=== PATIENT | female | born 1950 | race African-American/Black ===

== ENCOUNTER 2020-09-23 16:08 | Outpatient (CLI) | payer BC, SELFPAY ==
--- NOTE | ~2020-09-23 | MM_ITS ---
EXAMINATION: MM screening eladia BI w jaydon HISTORY: Screening TECHNIQUE: Craniocaudal and mediolateral oblique 3-D tomosynthesis images were obtained and synthetic 2-D images were generated. CAD analysis was submitted and interpreted. COMPARISON: Comparison to multiple prior studies sequentially, with oldest reviewed study dated 03/02. BREAST PARENCHYMAL COMPOSITION: There are scattered areas of fibroglandular density. FINDINGS: Stable architectural distortion and calcifications in the right breast. There is no evidenc e of suspicious mass, calcification, or architectural distortion to suggest malignancy in either telma st. There has been no suspicious interval change. IMPRESSION: 1. No mammographic evidence of malignancy. 2. Recommend routine screening mammography in one year. BI-RADS Category 2: Benign finding(s). Reviewed, dictated and finalized at location A. BER TENDER
== END 2020-09-23 16:09 | disposition home or self-care (01) ==
PROVIDERS: PCP Family Medicine; Visit Provider Obstetrics & Gynecology
DX: Z12.31 Encounter for screening mammogram for malignant neoplasm of breast (principal)
CPT/HCPCS: 77063; 77067

== ENCOUNTER 2021-12-01 14:47 | Outpatient (CLI) | payer MEDICARE, SELFPAY ==
--- NOTE | ~2021-12-01 | MM_ITS ---
EXAMINATION: MM screening eladia BI w jaydon HISTORY: Screening TECHNIQUE: Craniocaudal and mediolateral oblique 3-D tomosynthesis images were obtained and synthetic 2-D images were generated. CAD analysis was submitted and interpreted. COMPARISON: Comparison to multiple prior studies sequentially, with oldest reviewed study dated 03/02. BREAST PARENCHYMAL COMPOSITION: Breast composed of scattered areas of fibroglandular density. FINDINGS: There is stable architectural distortion in the subareolar location of the right breast. Th ere are developing asymmetries in the upper inner quadrant of the right breast posteriorly. The left breast is stable without evidence for malignancy. IMPRESSION: 1. Developing right breast asymmetries. 2. Additional mammographic views and possible breast ultrasound are recommended. BI-RADS Category 0: Incomplete: Needs additional imaging evaluation. Reviewed, dictated and finalized at location A. E FERRY OPERATOR IMPRESSION: 1. Developing right breast asymmetries. 2. Additional mammographic views and possible breast ultrasound are recommended . BI-RADS Category 0: Incomplete: Needs additional imaging evaluation.
== END 2021-12-01 14:48 | disposition home or self-care (01) ==
LOC: ANHIMG 14:50
PROVIDERS: PCP Family Medicine; Visit Provider Obstetrics & Gynecology
DX: Z12.31 Encounter for screening mammogram for malignant neoplasm of breast (principal); R92.8 Other abnormal and inconclusive findings on diagnostic imaging of breast
CPT/HCPCS: 77063; 77067

== ENCOUNTER 2021-12-18 14:01 | Outpatient (CLI) | payer MEDICARE, SELFPAY ==
--- NOTE | ~2021-12-18 | MMUS_ITS ---
EXAMINATION: MM diagnostic eladia RT w jaydon, US breast RT limited HISTORY: Possible right breast masses on screening mammogram TECHNIQUE: Additional 3-D tomosynthesis images of the right breast were performed and synthetic 2-D i mages were generated. CAD analysis was submitted and interpreted. High resolution limited right breas t ultrasound was performed. COMPARISON: 12/01/2021, 09/23/2020, 07/31/2019, 05/20/2017 FINDINGS: MAMMOGRAPHIC FINDINGS: The 6 mm oval, equal density, circumscribed mass in the posterior third of inner breast at the 3:00 l ocation 9 cm from the nipple. 6 mm oval, circumscribed, equal density mass is seen slightly more medi al/central breast at the 3:00 location 8 cm from the nipple. These appear to be stable to slightly in creased in size when compared to prior mammograms. ULTRASOUND: No definite sonographic correlate is identified for the mammographically detected masses. IMPRESSION: 1. Probably benign right breast masses. 2. Recommend 6 month follow-up right diagnostic mammogram and possible ultrasound. BI-RADS category 3, probably benign findings. Reviewed, dictated and finalized at location A. TENANCE FITTER IMPRESSION: 1. Probably benign right breast masses. 2. Recommend 6 month follow-up right diagnostic mammogram and possible ultrasou nd. BI-RADS category 3, probably benign findings.
== END 2021-12-18 14:02 | disposition home or self-care (01) ==
LOC: ANHIMG 14:01
PROVIDERS: PCP Family Medicine; Visit Provider Obstetrics & Gynecology
DX: R92.8 Other abnormal and inconclusive findings on diagnostic imaging of breast (principal)
CPT/HCPCS: 76642; 77061; 77065; G0279

== ENCOUNTER 2022-05-12 11:30 | Outpatient (CLI) | payer MEDICARE, SELFPAY ==
--- NOTE | ~2022-05-12 | MM_ITS ---
EXAMINATION: MM diagnostic eladia RT w jaydon HISTORY: Probable benign right mammogram findings on 12/18/2021 diagnostic right mammogram TECHNIQUE: ML, MLO and CC 3-D tomosynthesis images of the right breast were performed and synthetic 2 -D images were generated. CAD analysis was submitted and interpreted. COMPARISON: 12/10/2021 diagnostic right mammogram and limited right breast ultrasound 12/01/2021, 10/10/2020, 07/31/2019 bilateral screening mammogram examinations BREAST PARENCHYMAL COMPOSITION: There are scattered areas of fibroglandular density. FINDINGS: There is stable focal asymmetric density/architectural distortion in the upper mid right br east since 07/31/2019. No interval suspicious mass or new architectural distortion or any malignant calcification or new ski n thickening or retraction is noted. There are occasional 5 mm or smaller low-density circumscribed b enign-appearing mammographic opacities IMPRESSION: 1. Stable asymmetry/architectural distortion in the upper mid right breast, likely related to history of previous right breast biopsy, unchanged since 07/31/2019 2. Routine annual mammographic screening is recommended BI-RADS Category 2: Benign finding(s). Reviewed, dictated and finalized at location A. IMPRESSION: 1. Stable asymmetry/architectural distortion in the upper mid right breast, lik elena related to history of previous right breast biopsy, unchanged since 07/31/20 19 2. Routine annual mammographic screening is recommended BI-RADS Category 2: Benign finding(s).
== END 2022-05-12 11:31 | disposition home or self-care (01) ==
PROVIDERS: PCP Family Medicine; Visit Provider Obstetrics & Gynecology
DX: R92.8 Other abnormal and inconclusive findings on diagnostic imaging of breast (principal)
CPT/HCPCS: 77061; 77065; G0279

== ENCOUNTER 2022-06-25 13:08 | Outpatient (CLI) | payer MEDICARE, SELFPAY ==
--- NOTE | ~2022-06-25 | DEXA_ITS ---
Bone Density Report Name: WILLIAM SPRINGER Age: 71 Sex: Female Ethnicity: White Date of : 1950 Indication: postmenopausal; screening for osteoporosis; hysterectomy; Referring Provider: SANA GUPTA Study: Bone densitometry was performed. Exam Date: June 25, 2022 Accession number: [id number] Bone Density: Region BMD T-score Z-score Classification AP Spine(L1-L4) 1.201 1.4 3.7 Normal Femoral Neck (Left) 0.870 0.2 2.2 Normal Total Hip (Left) 1.077 1.1 2.8 Normal Femoral Neck (Right) 0.891 0.4 2.4 Normal Total Hip (Right) 1.069 1.0 2.7 Normal Total Hip Mean 1.073 1.1 2.8 Normal World Health Organization criteria for BMD impression classify patients as: Normal (T-score at or above -1.0), Osteopenia (T-score between -1.0 and -2.5), or Osteoporosis (T-score at or below -2.5). 10-year Fracture Risk: FRAX not reported because: All T-scores for Spine Total, Hip Total, Femoral Neck at or above -1.0 Clinical Information Provided by Patient: Has the following medical conditions: Hysterectomy Patient maximum height was 67 Menopause Age: 48 No regular weight bearing exercise Drinks caffeinated beverages Onset of menses at age 12 Number of children 2 Impression: The patient has normal bone mass. Discussion: LOW RISK OF FRACTURE; BONE DENSITY IS WELL ABOVE THE MINIMUM DESIRABLE LEVEL AND ABOVE AVERAGE FOR AGE AND SEX AT ALL SKELETAL SITES TESTED. This person's bone density is above expected limits for age and sex. This is rarely clinically significant, but should be pursued if there are significant musculoskeletal complaints. The patient should follow a healthful lifestyle (good nutrition with adequate calcium and vitamin D, and appropriate weight-bearing exercise). Follow-Up: Consider repeating this study in 5 years or sooner if there is some new clinical indication. Reported by: NOY on 06/25/2022 1:27:00 PM. Reviewed, dictated and finalized at location AMax [email or web address]
--- NOTE | ~2022-06-25 | US_ITS ---
EXAMINATION: US thyroid DATE: 06/25/2022 14:13 INDICATION: Nontoxic goiter, unspecified. TECHNIQUE: Multiple ultrasound images of the thyroid were obtained. COMPARISON: None. FINDINGS: The right thyroid lobe measures 5.4 x 1.2 x 1.6 cm. The left thyroid lobe measures 5.3 x 2.0 x 2.1 c m. In the left thyroid lobe, there is a 2.8 cm solid, hypoechoic, wider than tall nodule with smooth margin without echogenic foci (TI-RADS TR4). IMPRESSION: 1. Left thyroid nodule. Ultrasound-guided fine-needle aspiration is recommended. Reviewed, dictated and finalized at location A. IMPRESSION: 1. Left thyroid nodule. Ultrasound-guided fine-needle aspiration is recommended .
== END 2022-06-25 13:09 | disposition home or self-care (01) ==
PROVIDERS: PCP Family Medicine; Visit Provider Obstetrics & Gynecology
DX: Z78.0 Asymptomatic menopausal state (principal); E04.1 Nontoxic single thyroid nodule
CPT/HCPCS: 76536; 77080

== ENCOUNTER 2023-11-18 15:14 | Outpatient (CLI) | payer MEDICARE, SELFPAY ==
--- NOTE | ~2023-11-18 | MM_ITS ---
EXAMINATION: MM screening eladia BI w jaydon HISTORY: Screening mammogram TECHNIQUE: Craniocaudal and mediolateral oblique 3-D tomosynthesis images were obtained and synthetic 2-D images were generated. CAD analysis was submitted and interpreted. COMPARISON: 05/12/2022 diagnostic right mammogram 12/18/2021 diagnostic right mammogram and limited right breast ultrasound examination 12/01/2021, 09/23/2020, 05/20/2017 bilateral screening mammogram examinations BREAST PARENCHYMAL COMPOSITION: There are scattered areas of fibroglandular density. FINDINGS: History of benign right breast biopsy. Chronic focal asymmetric increased density in the an terior mid right breast. There is no evidence of suspicious mass, calcification, or architectural dis tortion to suggest malignancy in either breast. There has been no suspicious interval change. IMPRESSION: 1. No mammographic evidence of malignancy. 2. Recommend routine screening mammography in one year. BI-RADS Category 2: Benign finding(s). Reviewed, dictated and finalized at location A. ITUAL ADVISOR
== END 2023-11-18 15:15 | disposition home or self-care (01) ==
PROVIDERS: PCP Family Medicine; Visit Provider Obstetrics & Gynecology
DX: Z12.31 Encounter for screening mammogram for malignant neoplasm of breast (principal)
CPT/HCPCS: 77063; 77067

== ENCOUNTER 2025-02-07 15:18 | Outpatient (CLI) | payer MEDICARE, SELFPAY ==
--- NOTE | ~2025-02-07 | MM_ITS ---
EXAMINATION: MM screening eladia BI w jaydon HISTORY: Screening TECHNIQUE: Craniocaudal and mediolateral oblique 3-D tomosynthesis images were obtained and synthetic 2-D images were generated. CAD analysis was submitted and interpreted. COMPARISON: Comparison to multiple prior studies sequentially, with oldest reviewed study dated 07/31. BREAST PARENCHYMAL COMPOSITION: Not dense: There are scattered areas of fibroglandular density. FINDINGS: There is stable distortion in the subareolar location of the right breast, likely due to pr ior benign biopsy. There is no evidence of suspicious mass, calcification, or architectural distortio n to suggest malignancy in either breast. There has been no suspicious interval change. IMPRESSION: 1. No mammographic evidence of malignancy. 2. Recommend routine screening mammography in one year. BI-RADS Category 1: Negative Reviewed, dictated and finalized at location B.
--- OUTSIDE RECORDS SUMMARY | 2025-02-07 15:38 | XMS_ITS | Encounter Summary ---
Author Organization [facility] Care Team Providers Care Reading Instructor Name Role Phone Danny Silverman MD Primary Care Provider [phone] Encounter Details Date Type Department Care Team (Latest Contact Info) Description 10/07/2018 Orders Only [facility]IN[facility] ProviderLizett MD [address] [place] [id number] Social History Tobacco Use Types Packs/Day Years Used Date Smoking Tobacco: Never Assessed Comments Unknown Sex and Gender Information Value Date Recorded Sex Assigned at Not on file Legal Sex Female 8:24 AM CDT Gender Identity Not on file Sexual Orientation Not on file documented as of this encounter Plan of Treatment Not on file documented as of this encounter Procedures Procedure Name Priority Date/Time Associated Diagnosis Comments CARDIOLOGY REPORT 10/18/2018 12: 00 AM DOOR TO DOOR SELLING AGENT documented in this encounter Results * CARDIOLOGY REPORT (10/18/2018 12:00 AM DOOR TO DOOR SELLING AGENT) Anatomical Region Laterality Modality Other Narrative 10/18/2018 12:00 AM DOOR TO DOOR SELLING AGENT Ordered by an unspecified provider. us Historical Provider [facility] BRADLEY JASON Final Result documented in this encounter Visit Diagnoses Not on filedocumented in this encounter Care Teams Reading Instructor Relationship Specialty Start Date End Date Danny Silverman MD PCP - General Family Medicine 04/20/19 documented as of this encounter
--- OUTSIDE RECORDS SUMMARY | 2025-02-07 15:38 | XMS_ITS | Encounter Summary ---
Author Organization [facility] Address [address] [place] [id number] Care Team Providers Care Food Tray Assembler Name Role Phone Danny Silverman MD Primary Care Provider [phone] Encounter Details Date Type Department Care Team (Late Contact Info) Description 11/01/2023 Leaky Message Enc [facility], [place] [address] [place], [place] [phone] [facility], 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 [address] [place], [place] [phone] documented as of this encounter Visit Diagnoses Not on filedocumented in this encounter Additional Health Concerns Infection Onset Date Last Indicated Resolved Time COVID-19 Rule Out 07/25/2024 07/25/2024 07/25/2024 2:55 PM CDT COVID-19 Confirmed 07/25/2024 07/25/2024 12:32 AM CDT documented as of this encounter Care Teams Food Tray Assembler Relationship Specialty Start Date End Date Danny Silverman MD [address] [address] PCP - General FAMILY PRACTICE 11/21/21 documented as of this encounter
--- OUTSIDE RECORDS SUMMARY | 2025-02-07 15:38 | XMS_ITS | Encounter Summary ---
Author Organization [facility] Address [address] [place] [address] Care Team Providers Care Central Office Equipment Installer Name Role Phone Danny Silverman MD Primary Care Provider [phone] Encounter Details Date Type Department Care Team (Late st Contact Info) Description 01/21/2025 Results Follow-Up [facility] Orthopedics and Sports Medicine [address] [place] [phone] Benito Neumann MD [address] [place] [id number] Social History Tobacco Use Types Packs/Day Years Used Date Smoking Tobacco: Never Smokeless Tobacco: Never Alcohol Use Standard Drinks/Week Comments Yes 0 (1 standard drink = 0.6 oz pur e alcohol) social AUDIT-C Answer Date Recorded Frequency of Alcohol Consumption 2-4 times a tue10/24/2019 Average Number of Drinks Not on file 019 Frequency of Binge Drinking Not on file 02/2019 PHQ-2 Answer Date Recorded PHQ-2 Total Score (If total score is 3 or more points, staff should administer the PHQ-9) 0 02/13/2024 Comments Unknown Sex and Gender Information Value Date Recorded Sex Assigned at Not on file Legal Sex Female 8:24 AM CDT Gender Identity Not on file Sexual Orientation Not on file 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
--- OUTSIDE RECORDS SUMMARY | 2025-02-07 15:38 | XMS_ITS | Clinical Summary ---
Author Organization [facility] at the [facility] Address [address] [place] [address] Care Team Providers Care Pulmonology Physician Name Role Phone Danny Silverman MD Primary Care Provider [phone] Allergies Active Allergy Reactions Criticality Noted Date Comments Levofloxacin Rash,Shortness of breath High 4 Penicillin G Shortness of breath High 03/18/2014 Medications aspirin 81 mg enteric coated tablet 1 tablet (81 mg total) daily Active estradiol (VIVELLE-DOT) 0.05 mg/[address] 1 patch on the skin once a week 2 04/10/2019 Active lysine 500 mg tablet Take by mouth Active melatonin 5 mg tablet Take by mouth daily Active ascorbic acid/collagen hydr (COLLAGEN PLUS VITAMIN C ORAL) 500 mg Active red yeast rice 600 mg capsule Take by mouth A ctive cholecalciferol (VITAMIN D-3) 5,000 unit tablet daily Active cyanocobalamin (Vitamin B-12) 500 mcg tabletIndicatio ns:Prevention of Vitamin B12 Deficiency Take 1 tablet (500 mcg total) by mouth daily Active ascorbic acid (VITAMIN C) 1,000 mg tablet Take 1 tablet (1,000 mg total) by mouth daily Active fexofenadine (ADRIEN) 180 mg tablet Take 1 tablet (180 mg total) by mouth daily 90 tablet 10/06/2021 Active amLODIPine (NORVASC) 10 mg tablet Take 1 tablet (10 mg total) by mouth daily 30 tablet 2 09/30/2022 Active meloxicam (MOBIC) 15 mg tablet TAKE 1 TABLET(15 MG) BY MOUTH DAILY NEEDED FOR PAIN 30 tablet 11/15/2023 Active rosuvastatin (CRESTOR) 20 mg tablet Take 1 tablet (20 mg total) by mouth daily 30 tablet 5 02/13/2024 02/13/20 25 Active fluorometholone (FML) 0.1 % ophthalmic suspension SHAKE LIQUID AND INSTILL 1 DROP IN BOTH EYES FOUR TIMES DAILY 08/06/2024 Active potassium gluconate 500 mg (83 mg) tablet Take by mouth Active multivit-minera e-xrtq-thsavp tablet Take by mouth Active fluticasone propionate (FLONASE) 50 mcg/actuation nasal spray SHAKE LIQUID AND USE 2 SPRAYS IN EACH NOSTRIL DAILY 48 g 3 10/02/2024 Active acetaminophen-c odeine (TYLENOL with CODEINE #3) 300-30 mg per tablet Take 1 tablet by mouth every 4 (four) hours as needed for pain 30 tablet 12/04/2024 Active magnesium oxide 400 mg magnesium capsule Take by mouth Active multivit-min/vi t C/herb no.124 (AIRBORNE, ASCORBIC ACID, ORAL) Take by mouth Active BOSWELLIA CALLIE EXTRACT ORAL Take by mouth Active TURMERIC ORAL Take by mouth With curcumin Active Active Problems Problem Noted Date Diagnosed Date Essential hypertension, benign 08/26/2022 COVID-19 virus infection 06/23/2022 Diverticulosis of colon 09/07/2021 Overweight (BMI 25.0-29.9) 11/15/2019 Medicare annual wellness visit, subsequent 10/24 Intracranial atherosclerosis 02/13/2018 Hyperlipidemia 08/17/2016 Allergic rhinitis 08/17/2016 Resolved Problems Problem Noted Date Diagnosed Date Resolved Date Acute pain of right shoulder 09/07/2021 03/16/2022 Diverticulitis 12/04/2020 09/07/2021 Shortness of breath 10/01/2020 03/10/20 21 Cough 02/12/2020 03/10/2021 Dyslipidemia 11/15/2019 08/26/2022 SOB (shortness of breath) 10/24/2019 Essential hypertension 11/06/201808/26 Hot flashes due to menopause 08/17/2016 02/13/2024 Encounters Date Type Department Care Team Description 02/05/2025 2:45 PM CDT Office Visit [facility] Orthopedics and Sports Medicine [address] [place] [phone] Benito Neumann MD Primary osteoarthritis of right knee (Primary Dx); Complex tear of lateral meniscus of right knee as current injury, subsequent encounter 01/21/2025 Results Follow-Up [facility] Orthopedics and Sports Medicine [address] [place] [phone] Benito Neumann MD 01/20/2025 12:17 PM BOTTLE LABELER - 01/20/2025 11:59 PM BOTTLE LABELER Hospital Encounter [facility] MRI [address] [place] [id number] Chronic pain of right knee Discharge Disposition: Discharge to home or self care 01/01/2025 2:00 PM BOTTLE LABELER Office Visit [facility] Orthopedics and Sports Medicine [address] [place] [phone] Benito Neuamnn MD Chronic pain of right knee 12/03/2024 3:30 PM BOTTLE LABELER Therapy [facility] Physical Therapy [address] [place] [phone] Stephanie Moreira, PT Acute pain of right knee (Primary Dx) 12/03/2024 Telephone [facility] Medical [facility] Family Medicine at [address] [phone] Danny Silverman MD Medication Request 12/03/2024 Telephone [facility] Medical [facility] Family Medicine at [address] [place] [phone] Danny Silverman MD Recommendation Request 11/20/2024 Telephone [facility] Care Organization [address] [place] [phone] Sara Yan Unsuccessful Phone Call 1 ([facility]) 11/19/2024 3:00 PM BOTTLE LABELER Therapy [facility] Physical Therapy [address] [place] [phone] Lakeshia Jefferson, WRAPPER SHEETER Acute pain of right knee (Primary Dx) from Last 3 Months Immunizations Immunization Administration Dates Next Due Influenza, Unspecified 08/21/2023(Deferr ed: Patient Refused),08/21/2023(Deferred: Patient Refused),08/21/2022(Deferred: Patient Refused),11/19/2021(Deferred: Patient Refused) Pneumococcal Conjugate Pcv20 09/12/2024( Deferred: Patient Refused),02/13/2024(Deferred: Patient Refused) Surgical History Surgery Date Site/Laterality Comments HYSTERECTOMY BLADDER SUSPENSION LIPOSUCTION LASIK Medical History Medical History Date Comments Hypertension Hyperlipidemia Nervous Family History Medical History Relation Name Comments Heart attack Brother Rayray No Known Problems Daughter 1 No Known Problems Daughter 2 Lymphoma Father Emphysema Mother No Known Problems Sister Relation Name Status Comments Brother Rayray Daughter 1 Alive Daughter 2 Alive Father Maternal Grandfather Maternal Grandmother Mother Paternal Grandfather Paternal Grandmother Sister Alive Social History Tobacco Use Types Packs/Day Years Used Date Smoking Tobacco: Never Smokeless Tobacco: Never Tobacco Cessation:Counseling Given: Not Answered Alcohol Use Standard Drinks/Week Comments Yes 0 [...] 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 Not on file Not on file Obstetrics History Last Filed Vital Signs Vital Sign Reading Time Taken Comments Blood Pressure 142/62 09/12/2024 3:23 PM CDT Pulse 73 09/12/2024 3:23 PM CDT Temperature 36.2 C (97.1 F) 09/12/2024 3:23 PM CDT Respiratory Rate 18 09/12/2024 3:23 PM CDT Oxygen Saturation 98% 09/12/2024 3:23 PM CDT Inhaled Oxygen Concentration - - Weight 81.6 kg (180 lb) 02/05/2025 3:34 PM CDT Height 170.2 cm (5' 7 ) 02/05/2025 3:34 PM CDT Body Mass Index 28.19 02/05/2025 3:34 PM CDT Plan of Treatment Health Maintenance Due Date Last Done Comments Hepatitis C Screening 1950 DTaP/Tdap/Td Vaccine (1 - Tdap) 1959 Hepatitis B Screening 1966 Zoster Vaccine (1 of 2) 1998 Covid-19 Vaccine (3 - season) 2024 08/28/2021, 08/07/2021 Depression Screening 02/12/2025 02/13/2024, 02/08/2023, 03/16/2022, Additional history exists Fall Risk Assessment 02/12/2025 02/13/2024, 02/08/2023, 03/16/2022, Additional history exists Well Visit 65+ 02/12/2025 02/13/2024, 01/20, 11/19/2021, Additional history exists Influenza Vaccine (#1) 2025 Postp oned from 07/22/2024 (Patient declined, but will receive in the future) Pneumococcal vaccine 65+ (1 of 1 - PCV) 09/12/2025 Postponed from 1998 (Patient declined, but will receive in the future) Osteoporosis Screening-Bone Density Scan 10/01/2026 10/01/2024, 06/25/2022, 01/03/2020, Additional history exists Colon Cancer Screening-CT Colonography Discontinued 09/27/2022, 10/11/2017 Colon Cancer Screening-Colonoscopy Discontinued 09/27/2022, 10/11/2017 Colon Cancer Screening-DNA Stool Discontinued 09/27/2022, 10/11/2017 Colon Cancer Screening-FIT Discontinued 09/27/2022, Colon Cancer Screening-FOBT Discontinued 09/27/2022, 10/11/2017 Colon Cancer Screening-Sigmoidoscopy Discontinued 09/27/2022, 10/11/2017 Colorectal Cancer Screening Discontinued Breast Cancer Screening-Mammogram Discontinued 11/18/2023, 12/01/2021, 05/20/2017, Additional history exists Procedures Procedure Name Priority Date/Time Associated Diagnosis Comments MRI KNEE RIGHT WO CONTRAST Schedule Routine, Read Routine (OP Routine) 01/20/2025 1:13 PM BOTTLE LABELER Chronic pain of right knee DEXA AXIAL SKELETON BONE DENSITY 1 OR MORE SITES Schedule Routine, Read Routine (OP Routine) 10/01/2024 12:37 PM BOTTLE LABELER Post-menopausal SCREENING MAMMOGRAM BILATERAL W SHADE Schedule Routine, Read Routine (OP Routine) 11/18/2023 COLONOSCOPY Routine 09/27/2022 from Last 3 Months or Most Recently Relevant to Health Maintenance Results * MRI Knee Right WO Contrast (01/20/2025 1:13 PM BOTTLE LABELER) Anatomical Region Laterality Modality Lower Extremities Right Magnetic Reson ance 01/21/2025 12:4 7 PM BOTTLE LABELER Narrative 01/21/2025 12:56 PM BOTTLE LABELER EXAM DESCRIPTION: MRI KNEE RIGHT WO CONTRAST REASON FOR STUDY: pain Rt knee pain after fall on frontal portion of knee Oct 14. Pt states having aching, giving out, stiffness/weakness, and limited ROM of rt knee since fall TECHNIQUE: Multiplanar, multisequence MRI of the right knee was performed without contrast. COMPARISON: Prior exam 09/12/2024 FINDINGS: Joint and Bursae: There is a mild joint effusion. No evidence of a Lewis's cyst. Bones: There is no acute fracture. No suspicious marrow infiltration. No avascular necrosis. Cartilage: Patellofemoral: Mild chondrosis of the patella. Medial compartment: There is delamination of the central weight-bearing medial femoral condyle with a deep subchondral flap as seen on coronal image 19 of 35, series 601. This extends 4.2 mm transversely. Moderate chondrosis about this area otherwise. Lateral Compartment: No significant chondrosis. Ligaments: The ACL, PCL, MCL and lateral collateral ligament complex are intact. Extensor Mechanism: The quadriceps and patellar tendons are intact. Tendons/Soft tissues: The popliteus tendon is intact. The musculature is intact without evidence of tear. The popliteal neurovascular bundle is normal. Medial Meniscus: There is intrasubstance signal seen of the posterior horn. However, this does not meet strict criteria for a tear. Lateral Meniscus: Mild free margin blunting midbody lateral meniscus. Undersurface tear favored of the posterior horn. IMPRESSION: There is delamination of the central weight-bearing medial femoral condyle with a deep subchondral flap measuring 4.2 mm transversely. Moderate chondrosis about this area otherwise. Mild chondrosis of the patella. Mild free margin blunting midbody lateral meniscus. Undersurface tear favored of the posterior horn. Intrasubstance signal posterior horn medial meniscus. This does not meet strict criteria for a tear. Mild joint effusion. THIS IS AN ELECTRONICALLY VERIFIED FINAL REPORT 01/21/2025 12:56 PM - Electronically signed by Yuri Barraza M.D. MJ T: Report ID: [id number] Reading Location: [place] [address] Procedure Note Yuri Barraza MD - 01/21/2025 EXAM DESCRIPTION: MRI KNEE RIGHT WO CONTRAST REASON FOR STUDY: pain Rt knee pain after fall on frontal portion of knee Oct 14. Pt stateshaving aching, giving out, stiffness/weakness, and limited ROM of rt knee sincefall TECHNIQUE: Multiplanar, multisequence MRI of the right knee wasperformed without contrast. COMPARISON: Prior exam 09/12/2024 FINDINGS: Joint and Bursae: There is a mild joint effusion. No evidence of a Lewis's cyst. Bones: There is no acute fracture. No suspicious marrow infiltration. Noavascular necrosis. Cartilage: Patellofemoral: Mild chondrosis of the patella. Medial compartment: There is delamination of the central weight-bearing medial femoral condyle with a deep subchondral flap as seenon coronal image 19 of 35, series 601. This extends 4.2 mm transversely. Moderate chondrosis about this area otherwise. Lateral Compartment: No significant chondrosis. Ligaments: The ACL, PCL, MCL and lateral collateral ligament complex are intact. Extensor Mechanism: The quadriceps and patellar tendons are intact. Tendons/Soft tissues: The popliteus tendon is intact. The musculature is intact without evidence of tear. The popliteal neurovascular bundle isnormal. Medial Meniscus: There is intrasubstance signal seen of the posteriorhorn. However, this does not meet strict criteria for a tear. Lateral Meniscus: Mild free margin blunting midbody lateral meniscus. Undersurface tear favored of the posterior horn. IMPRESSION: There is delamination of the central weight-bearing medial femoralcondyle with a deep subchondral flap measuring 4.2 mm transversely. Moderate chondrosis about this area otherwise. Mild chondrosis of the patella. Mild free margin blunting midbody lateral meniscus. Undersurface tearfavored of the posterior horn. Intrasubstance signal posterior horn medial meniscus. This does not meet strict criteria for a tear. Mild joint effusion. THIS IS AN ELECTRONICALLY VERIFIED FINAL REPORT 01/21/2025 12:56 PM - Electronically signed by Yuri Barraza M.D. 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 LEFT HIP: Total BMD is 1.035 g/cm2 T-score is 0.0 This is decrease in comparison to prior exam which is not statistically significant. Femoral neck BMD is 0.849 g/cm2 T-score is -0.7 FRAX: FRAX not reported due to T-scores of hip, femoral neck and/or spine being at or above -1.0 (Normal). IMPRESSION: Normal bone mass. REFERENCE: Bone mineral density: T-Score: Normal (T-score above or = -1.0) Low bone mass (T-score between -1.0 and -2.5) replaces the previously used term osteopenia Osteoporosis (T-score = or below -2.5) Z-Score: Within the expected range for age (Z-score above -2.0) Below the expected range for age (Z-score is -2.0 or below) Please see below follow up recommendations. Medical evaluation for secondary causes of low bone mineral density may be appropriate. FRAX is a World Health Organization validated fracture risk assessment tool that calculates a person's 10 year probability of a major osteoporosis related fracture and hip fracture. According to the National Osteoporosis Foundation guidelines, postmenopausal women and men age 50 or older with low bone mass and a 10 year probability of a major osteoporosis related fracture = or greater than 20% or a 10 year probability of a hip fracture = or greater than 3% should be considered for pharmacological treatment for the prevention of osteoporosis. For further information, including treatment recommendations, please refer to the 2019 ISCD Official Positions (http://www.iscd.org) and the NOF's Clinician's Guide to Prevention and Treatment of Osteoporosis (http://www.nof.org/professionals/clinical-guidelines) THIS IS AN ELECTRONICALLY VERIFIED FINAL REPORT 10/01/2024 9:41 PM - Electronically signed by Yuri Thrasher M.D. 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 LEFT HIP: Total BMD is 1.035 g/cm2 T-score is 0.0 This is decrease in comparison to prior exam which is not statistically significant. Femoral neck BMD is 0.849 g/cm2 T-score is -0.7 FRAX: FRAX not reported due to T-scores of hip, femoral neck and/or spine beingat or above -1.0 (Normal). IMPRESSION: Normal bone mass. REFERENCE: Bone mineral density: T-Score: Normal (T-score above or = -1.0) Low bone mass (T-score between -1.0 and -2.5) replaces thepreviously used term osteopenia Osteoporosis (T-score = or below -2.5) Z-Score: Within the expected range for age (Z-score above -2.0) Below the expected range for age (Z-score is -2.0 or below) Please see below follow up recommendations. Medical evaluation forsecondary causes of low bone mineral density may be appropriate. FRAX is a World Health Organization validated fracture risk assessmenttool that calculates a person's 10 year probability of a major osteoporosisrelated fracture and hip fracture. According to the National OsteoporosisFoundation guidelines, postmenopausal women and men age 50 or older with low bonemass and a 10 year probability of a major osteoporosis related fracture = or greater than 20% or a 10 year probability of a hip fracture = or greaterthan 3% should be considered for pharmacological treatment for the preventionof osteoporosis. For further information, including treatment recommendations, please referto the 2019 ISCD Official Positions (http://www.iscd.org) and the NOF's Clinician's Guide to Prevention and Treatment of Osteoporosis (http://www.nof.org/professionals/clinical-guidelines) THIS IS AN ELECTRONICALLY VERIFIED FINAL REPORT 10/01/2024 9:41 PM - Electronically signed by Yuri Thrasher M.D. MF: [email or web address] Report ID: [id number] Reading Location: [place] [address] Yue Mercado IMG DXA PROCEDURES Final Result * Screening Mammogram Bilateral W [place] (11/18/2023) Anatomical Region Laterality Modality Breast Bilateral Mammography us Historical Provider IMG MAMMO PROCEDURES Erica l Result * Colonoscopy (09/27/2022) Anatomical Region Laterality Modality Other 09/27/2022 us Historical Provider ENDOSCOPY PROCEDURES Erica l Result from Last 3 Months or Most Recently Relevant to Health Maintenance Insurance [id number] (Home) [address] [facility] [place] [phone] [facility] MEDICARE ADVANTAGE [facility] Address: [place] [phone] [place] [id number] [employer] MEDICARE ADVANTAGE [facility] Address: [facility] [address] [place] [id number] Care Teams Pulmonology Physician Relationship Specialty Start Date End Date Danny Silverman MD PCP - General Family Medicine 04/20/19
--- OUTSIDE RECORDS SUMMARY | 2025-02-07 15:38 | XMS_ITS | Referral Summary ---
Author Organization [facility] Address [address] [place] [address] Care Team Providers Care Driver Service Technician Name Role Phone Danny Silverman MD Primary Care Provider [phone] Encounters Date Type Department Care Team Description 02/05/2025 2:45 PM CDT Office Visit [facility] [address] [place] [phone] Benito Neumann MD Primary osteoarthritis of right knee (Primary Dx); Complex tear of lateral meniscus of right knee as current injury, subsequent encounter 01/21/2025 Results Follow-Up [facility] [address] [place] [phone] Benito Neumann MD 01/20/2025 12:17 PM ROOMS DIRECTOR - 01/20/2025 11:59 PM ROOMS DIRECTOR Hospital Encounter [facility] MRI [address] [place] [id number] Chronic pain of right knee Discharge Disposition: Discharge to home or self care 01/01/2025 2:00 PM ROOMS DIRECTOR Office Visit [facility] [address] [place] [phone] Benito Neumann MD Chronic pain of right knee 12/03/2024 Telephone [facility] Family Medicine at [address] [place] [address] Danny Silverman MD Medication Request 12/03/2024 Telephone [facility] Family Medicine at [address] [place] [phone] Danny Silverman MD Recommendation Request 12/03/2024 3:30 PM ROOMS DIRECTOR Therapy [facility] OP Physical Therapy [address] [place] [address] [address] [place] [address] Stephanie Moreira, PT Acute pain of right knee (Primary Dx) 11/20/2024 Telephone [facility] Accountable Care Organization [address] [place] [address] Sara Yan Unsuccessful Phone Call 1 ([facility]) 11/19/2024 3:00 PM ROOMS DIRECTOR Therapy [facility] OP Physical Therapy [address] [place] [address] [address] [place] [address] Lakeshia Jefferson, [employer] Acute pain of right knee (Primary Dx) from Last 3 Months Allergies Active Allergy Reactions Criticality Noted Date [...] mg) tablet Take by mouth Active multivit-minera b-rutl-bffplw tablet Take by mouth Active fluticasone propionate [...] Hot flashes due to menopause 08/17/2016 02/13/2024 Immunizations Immunization Administration Dates Next Due Influenza, Unspecified 08/21/2023(Deferr ed: Patient Refused),08/21/2023(Deferred: Patient Refused),08/21/2022(Deferred: Patient Refused),11/19/2021(Deferred: Patient Refused) Pneumococcal Conjugate Pcv20 09/12/2024( Deferred: Patient Refused),02/13/2024(Deferred: Patient Refused) Social History Tobacco Use Types Packs/Day Years [...] 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 on file Not on file Last Filed Vital Signs Vital Sign Reading [...] 02/05/2025 3:34 PM CDT Plan of Treatment Not on file Procedures Procedure Name Priority Date/Time Associated Diagnosis Comments MRI KNEE RIGHT WO CONTRAST Schedule Routine, Read Routine (OP Routine) 01/20/2025 1:13 PM ROOMS DIRECTOR Chronic pain of right knee DEXA AXIAL SKELETON BONE DENSITY 1 OR MORE SITES Schedule Routine, Read Routine (OP Routine) 10/01/2024 12:37 PM ROOMS DIRECTOR Post-menopausal SCREENING MAMMOGRAM BILATERAL W SHADE Schedule Routine, Read Routine (OP Routine) 11/18/2023 COLONOSCOPY Routine 09/27/2022 from Last 3 Months or Most Recently Relevant to Health Maintenance Results * MRI Knee Right WO Contrast (01/20/2025 1:13 PM ROOMS DIRECTOR) Anatomical Region Laterality Modality Lower Extremities Right Magnetic Reson ance 01/21/2025 12:4 7 PM ROOMS DIRECTOR Narrative 01/21/2025 12:56 PM ROOMS DIRECTOR EXAM DESCRIPTION: MRI KNEE RIGHT WO CONTRAST [...] 12:56 PM - Electronically signed by Yuri BUTLER T: Report ID: [id number] Reading Location: [place] [address] Procedure Note Yuri Barraza MD - 01/21/2025 [...] Yuri Barraza M.D. 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 MF: [email or web address] Report ID: [id number] Reading Location: [id number] Yue Mercado IMRose DXA PROCEDURES Final Result * Screening Mammogram Bilateral W Shade (11/18/2023) Anatomical Region Laterality Modality Breast Bilateral Mammography Historical Provider IMRose MAMMO PROCEDURES Erica l Result * Colonoscopy (09/27/2022) Anatomical Region Laterality Modality Other 09/27/2022 us Historical Provider ENDOSCOPY PROCEDURES Erica l Result from Last 3 Months or Most Recently Relevant to Health Maintenance Insurance [id number] (Home) [address] UHC MEDICARE ADVANTAGE [facility] MEDICARE Address: [address] [address] [facility] [place] [id number] UHC MEDICARE ADVANTAGE [facility] MEDICARE Address: [facility] [address] [place] [address] Care Teams Driver Service Technician Relationship Specialty Start Date End Date Danny Silverman MD PCP - General Family Medicine 04/20/19
--- OUTSIDE RECORDS SUMMARY | 2025-02-07 15:38 | XMS_ITS | Clinical Summary ---
Author Organization [facility] Address [address] [place] [address] Care Team Providers Care Animal Anatomist Name Role Phone Danny Silverman MD Primary Care Provider [phone] Allergies Active Allergy Reactions Criticality Noted Date Comments Levofloxacin Rash,Shortness of Breath High 4 Penicillins Anaphylaxis,Shortnes s of Breath High 03/18/2014 Difficulty breathing Medications estradiol (VIVELLE-DOT) 0.05 MG/24HR patch UNWRAP AND APPLY 1 PATCH TO SKIN TWICE A WEEK DIRECTED. APPLY 1 PATCH FOR 3 DAYS ALTERNATING WITH 1 PATCH FOR 4 DAYS 2 Active meloxicam (MOBIC) 15 MG tablet Take 1 tablet (15 mg total) by mouth as needed. 2 Active fluticasone propionate (FLONASE) 50 MCG/ACT nasal spray as needed. 3 Active red yeast rice extract 600 MG Cap Take 500 mg by mouth 2 (two) times a week. Active Vitamin D3 (VITAMIN D) 50 mcg tablet Take 1 tablet (50 mcg total) by mouth daily. Active Specialty Vitamins Products (ADVANCED COLLAGEN) Tab Take by mouth daily. Active Ascorbic Acid 1000 MG Tab Take 1,000 mg by mouth daily. Active vitamin B-12 (CYANOCOBALAMIN ) 500 MCG tablet Take 1 tablet (500 mcg total) by mouth. Active rosuvastatin (CRESTOR) 20 MG tablet Take 1 tablet (20 mg total) by mouth daily. Pt is taking this medication only once or twice weekly 4 02/13/20 25 Active aspirin 81 MG chewable tablet CHEW AND SWALLOW 1 TABLET(81 MG) BY MOUTH DAILY 100 tablet 2 4 Active Additional Information Patient taking differently:81 mg Oral Daily,Pt is taking this medication only twice a week, Reported on 2024 fluorometholone (FML) 0.1 % ophthalmic suspension SHAKE LIQUID AND INSTILL 1 DROP IN BOTH EYES FOUR TIMES DAILY 4 Active Potassium 99 MG tablet Take 1 tablet by mouth daily. OTC Active Magnesium Citrate 100 MG Cap Active amLODIPine (NORVASC) 10 MG tablet TAKE 1 TABLET BY MOUTH DAILY 90 tablet 1 5 Active Active Problems Problem Noted Date Diagnosed Date Essential hypertension, benign 08/26/2022 COVID-19 virus infection 06/23/2022 Hyperlipidemia 08/17/2016 Pure hypercholesterolemia 12/15/2014 Encounters Date Type Department Care Team Description 11/20/2024 11:14 AM LINEN TECH - 11/20/2024 11:59 PM LINEN TECH Hospital Encounter [facility] [place] [address] Valentin Barlow MD Discharge Disposition: Home or Self Care (Routine Discharge) 11/20/2024 Travel from Last 3 Months Family History Medical History Relation Comments Heart Attack Brother No Known Problems Father No Known Problems Mother Relation Status Comments Brother Father Mother Social History Tobacco Use Types Packs/Day Years Used Date Smoking Tobacco: Never Passive Smoke Exposure: Never Smokeless Tobacco: Never Tobacco Cessation:Counseling Given: Not Answered Alcohol Use Standard Drinks/Week Comments Not Currently 1.7 (1 standard drink = 0.6 oz p ure alcohol) Comments No Sex and Gender Information Value Date Recorded Sex Assigned at Not on file Legal Sex Female 9:16 AM CDT Gender Identity Not on file Sexual Orientation Not on file 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 file Not on file Not on fi le Last Filed Vital Signs Vital Sign Reading Time Taken Comments Blood Pressure 150/90 2024 3:39 PM LINEN TECH Pulse 80 2024 3:39 PM LINEN TECH Temperature 36.8 C (98.2 F) 07/25/2024 2:39 PM CDT Respiratory Rate 16 07/25/2024 2:39 PM CDT Oxygen Saturation 97% 2024 3:39 PM LINEN TECH Inhaled Oxygen Concentration - - Weight 83.5 kg (184 lb) 2024 3:39 PM LINEN TECH Height 170.2 cm (5' 7 ) 2024 3:39 PM LINEN TECH Body Mass Index 28.82 2024 3:39 PM LINEN TECH Plan of Treatment Upcoming Encounters Date Type Department Care Team (Late st Contact Info) Description 05/07/2025 1:00 PM CDT Office Visit [facility], [address] [phone] Valentin Barlow MD [facility]. [address] [phone] Health Maintenance Due Date Last Done Comments Hepatitis C 1966 DTaP, Tdap and Td Vaccines (1 - Tdap) 1967 Zoster Vaccines (1 of 2) 1998 Annual Medicare Wellness Visit 2013 Pneumococcal Vaccine: 65+ Years (1 of 1 - PCV) 2013 RSV Immunization or 60+ Years (1 - 1-dose 75+ series) 2023 COVID-19 Vaccine (3 - season) 2024 08/28/2021, 08/07/2021 Influenza Adult (#1) 2024 Dexa Scan (General) Completed 10/01/2024, 10/01/2024, 06/25/2022, Additional history exists Meningococcal B Vaccine Aged Out No l onger eligible based on patient's age to complete this topic Meningococcal Vaccine Aged Out No kerri priyank eligible based on patient's age to complete this topic RSV Immunizations Under 20 Months Aged Out No longer eligible based on patient's age to complete this topic Procedures Procedure Name Priority Date/Time Associated Diagnosis Comments LIPID PANEL Routine 11/20/2024 11:29 AM LINEN TECH Hyperlipidemia, unspecified hyperlipidemia type from Last 3 Months Results * (ABNORMAL) LIPID PANEL (11/20/2024 11:29 AM LINEN TECH) CHOLESTEROL 257(H) <200 MG/DL 11/20/2024 12:08 PM [facility] TRIGLYCERIDES 150(H) <150 MG/DL 11/20/2024 12:08 PM [facility] HDL 50 >40.0 MG/DL 11/20/2024 12:08 PM [facility] LDL (CALCULATED) 177(H) <100 MG/DL 11/20/2024 12:08 PM [facility] NON HDL CHOLESTEROL 207(H) <130 MG/DL 11/20/2024 12:08 PM [facility] CHOL/HDL RATIO 5.1(H) 0.0 - 4.5 11/20/2024 12:08 PM [facility] VLDL CALCULATION 30 5 - 55 MG/DL 11/20/2024 12:08 PM [facility] LIPID INTERPRETATION 11/20/2024 12:08 PM [facility] Comment: [facility] CONCENSUS REPORT RECOMMENDATIONS: ADULT CHILD LOW RISK: CHOLESTEROL <200 <170 TRIGLYCERIDE <150 --- HDL >=60 --- LDL <100 <110 BORDERLINE: CHOLESTEROL 200-239 170-199 TRIGLYCERIDE 150-199 --- HDL 40-59 --- LDL 100-159 110-129 HIGH RISK: CHOLESTEROL >=240 >=200 TRIGLYCERIDE >=200 --- HDL <40 --- LDL >=160 >=130 11/20/2024 11:2 9 AM LINEN TECH us Valentin Barlow MD LABORATORY Final Result [facility] [address] [place] [address], [place] [phone] from Last 3 Months Insurance MED REPLACE [facility] MEDICARE Care Teams Animal Anatomist Relationship Specialty Start Date End Date Danny Silverman MD [address] [facility] [address] [address] PCP - General FAMILY PRACTICE 11/21/21
--- OUTSIDE RECORDS SUMMARY | 2025-02-07 15:38 | XMS_ITS | Clinical Summary ---
Author Organization [facility] Address [address] [place] [address] Care Team Providers Care Bike Technician Name Role Phone Debbi Sosa MD Primary Care Provider [phone] Source Comments [facility],non-owned Affiliates and Associated Physician Practices is amultiple site organization consisting of ambulatory clinics and hospital sitesin [place], [place]. This disclosure is being madepursuant to the Care Everywhere program and may not contain all information available regarding this patient. Last updated 18.[facility] Allergies Active Allergy Reactions Criticality Noted Date Comments Levaquin Shortness of Breath,Rash High 03/18/2014 Penicillin G Shortness of Breath High 03/18/2014 Medications * Be aware that medications may not be up to date on this document. Alwaysverify current medications with the patient. Medication Sig Dispensed Refills Start Date End Date Status rosuvastatin (CRESTOR) 10 MG tablet Take 10 mg by mouth. 30 tablet 3 07/11/2017 Active montelukast (SINGULAIR) 10 MG tablet 5 09/28/2016 Active Collagen 500 MG Take by mouth. 10/28/2016 Activ e ASPIRIN 81 PO Active COLLAGEN PO Active estradiol (VIVELLE-DOT) 0.05 MG/24HR patch Apply 1 patch to skin every 7 days Active Lysine 500 MG Active MAGNESIUM SULFATE IV Acti ve melatonin 5 MG tablet Act gayle Naproxen Sodium 220 MG Ac tive fish oil/omega-3 fatty acids (PROMEGA;CARDI-OMEGA 3) 1000 MG capsule Active Active Problems Problem Noted Date Diagnosed Date Pure hypercholesterolemia 12/15/2014 Family History Medical History Relation Name Comments CAD (Coronary Artery Disease) Brother Status: None Known Father Status: d Emphysema Mother Status: d Relation Name Status Comments Brother Father Mother Social History Tobacco Use Types Packs/Day Years Used Date Smoking Tobacco: Never Alcohol Use Standard Drinks/Week Comments Yes 0.8 (1 standard drink = 0.6 oz p ure alcohol) Sex and Gender Information Value Date Recorded Sex Assigned at Not on file Gender Identity Not on file Sexual Orientation Not on file Last Filed Vital Signs Vital Sign Reading Time Taken Comments Blood Pressure 120/70 06/23/2017 11:21 AM CDT Pulse 67 06/23/2017 11:21 AM CDT Temperature 36.4 C (97.5 F) 06/23/2017 11:21 AM CDT Respiratory Rate 16 10/28/2016 3:45 PM CARPET [facility]ER Oxygen Saturation 97% 06/23/2017 11:21 AM CDT Inhaled Oxygen Concentration - - Weight 83.5 kg (184 lb) 06/23/2017 11:21 AM CDT Height 170.2 cm (5' 7 ) 09/25/2015 1:30 PM [facility] Body Mass Index 28.82 09/25/2015 1:30 PM [facility] Plan of Treatment Health Maintenance Due Date Last Done Comments BONE DENSITY TESTING 1950 MEDICARE AWV 12 MONTHS 1950 DTAP/TDAP/TD VACCINES (1 - Tdap) 1967 PNEUMOCOCCAL VACCINE 50+ (1 of 1 - PCV) 1998 ZOSTER VACCINE (1 of 2) 1998 Respiratory Syncytial Virus (RSV) Vaccine Pt: or over 60 yrs (1 - 1-dose 75+ series) 2023 COVID-19 VACCINE ( - 2023-2 5 season) 2024 INFLUENZA VACCINE (#1) 2024 DEPRESSION SCREENING 11/21/2024 HEPATITIS C SCREENING Completed 11/19/2016 HEPATITIS B VACCINE Aged Out No longe r eligible based on patient's age to complete this topic HIB VACCINE Aged Out No longer eligi ble based on patient's age to complete this topic HPV VACCINE Aged Out No longer eligi ble based on patient's age to complete this topic MENINGOCOCCAL (Group B) VACC INE SHARED DECISION-MAKING Aged Out No longer eligibl e based on patient's age to complete this topic MENINGOCOCCAL GROUPS A/C/Y/W VACCINE Aged Out No longer eligible b ased on patient's age to complete this topic Procedures Procedure Name Priority Date/Time Associated Diagnosis Comments HEPATITIS C AB W/RFLX TO HCV RNA QN PCR Routine 11/19/2016 9:31 AM CARPET L[facility]ER from Last 3 Months or Most Recently Relevant to Health Maintenance Results * HEPATITIS C AB W/RFLX TO HCV RNA QN PCR (11/19/2016 9:31 AM CARPET LAYER) Hepatitis C Antibody NON-REACTI VE NON-REACT [facility] ([facility]) Signal/Cutoff 0.01 <1.00 [facility] ([facility]) Comment: REPORT COMMENT: FASTING:YES Test Performed at: [facility] [address] [place] [address] ZACARIAS ARANDA DO,MPH 11/19/2016 9:31 AM [facility] 11/19/2016 9:33 AM [facility] Debbi Sosa MD LAB - CHEMISTRY [facility]WANNA [facility]ONG [facility] ([facility]) from Last 3 Months or Most Recently Relevant to Health Maintenance Care Teams Bike Technician Relationship Specialty Start Date End Date Debbi Sosa MD PCP - General 07/13/16
--- OUTSIDE RECORDS SUMMARY | 2025-02-07 15:38 | XMS_ITS | Encounter Summary ---
Author Organization [facility] Address [address] [place] [address] Care Team Providers Care Field Hauler Name Role Phone Danny Silverman MD Primary Care Provider [phone] Encounter Details Date Type Department Care Team (Late st Contact Info) Description 10/17/2024 Telephone [facility] Accountable Care Organization [address] [place], [place] [id number] Dagmar So [place] [address] [address] [place] [address] [place] [address] Social History Tobacco Use Types Packs/Day Years [...] on filedocumented in this encounter Care Teams Field Hauler Relationship Specialty Start Date End Date Danny Silverman MD PCP - General Family Medicine 04/20/19 documented as of this encounter
== END 2025-02-07 15:19 | disposition home or self-care (01) ==
PROVIDERS: PCP Family Medicine; Visit Provider Obstetrics & Gynecology
DX: Z12.31 Encounter for screening mammogram for malignant neoplasm of breast (principal)
CPT/HCPCS: 77063; 77067